=== PATIENT | male | born 1960 | race Caucasian/White ===

== ENCOUNTER 2024-04-09 12:26 | Emergency (ER) | payer OTHER | END 2024-04-09 14:34 | LOC: EEVIPCON 12:26 → ERS 12:26 | DX: R59.0 Localized enlarged lymph nodes (principal); E11.9 Type 2 diabetes mellitus without complications; I10 Essential (primary) hypertension; I25.2 Old myocardial infarction; I25.10 Atherosclerotic heart disease of native coronary artery without angina pectoris ==